=== PATIENT | female | born 1985 | race Caucasian/White ===

== ENCOUNTER 2017-06-23 08:39 | Emergency (ER) | payer OTHER ==
--- NOTE | 2017-06-23 09:35 | RAD REPORT ---
EXAM DESCRIPTION: RAD - Knee Left 3 View - 06/23/2017 9:30 am CLINICAL HISTORY: Pain and swelling. COMPARISON: None. FINDINGS: Mild osteoarthritic changes are present, greatest involving the lateral compartment. A sma ll suprapatellar joint effusion is suspected. No acute fracture or dislocation is seen.
--- NOTE | 2017-06-23 09:41 | EDPHYS ---
Physician Documentation [facility] Name: Alyson Bernardo Age: 31 yrs Sex: Female : 1985 Arrival Date: 06/23/2017 Time: 08:41 Bed 14 Private MD: ED Physician Salinas Linder HPI: 06/23 08:52 This 31 yrs old Female presents to ER via Ambulatory with complaints of Knee snw Pain. 08:52 Onset: The symptoms/episode began/occurred suddenly, 3 day(s) ago, and became snw persistent. The patient has not experienced similar symptoms in the past. The patient has not recently seen a physician. left knee fracture 5 years ago. 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 - Social history:: Smoking status: Patient uses tobacco products, denies chronic smoking, but will smoke occasionally. ROS: 08:51 Constitutional: Negative for fever, chills, and weight loss, Eyes: Negative for injury, snw pain, redness, and discharge, ENT: Negative for injury, pain, and discharge, Neck: Negative for injury, pain, and swelling, Cardiovascular: Negative for chest pain, palpitations, and edema, Respiratory: Negative for shortness of breath, cough, wheezing, and pleuritic chest pain, Abdomen/GI: Negative for abdominal pain, nausea, vomiting, diarrhea, and constipation, Back: Negative for injury and pain, : Negative for injury, bleeding, discharge, and swelling, Skin: Negative for injury, rash, and discoloration, Neuro: Negative for headache, weakness, numbness, tingling, and seizure. 08:51 MS/extremity: Positive for decreased range of motion, swelling, tenderness, of the left knee. Exam: 08:49 Constitutional: This is a well developed, well nourished patient who is awake, alert, snw and in no acute distress. Head/Face: Normocephalic, atraumatic. Eyes: Pupils equal round and reactive to light, extra-ocular motions intact. Lids and lashes normal. Conjunctiva and sclera are non-icteric and not injected. Cornea within normal limits. Periorbital areas with no swelling, redness, or edema. ENT: Nares patent. No nasal discharge, no septal abnormalities noted. Tympanic membranes are normal and external auditory canals are clear. Oropharynx with no redness, swelling, or masses, exudates, or evidence of obstruction, uvula midline. Mucous membranes moist. Neck: Trachea midline, no thyromegaly or masses palpated, and no cervical lymphadenopathy. Supple, full range of motion without nuchal rigidity, or vertebral point tenderness. No Meningismus. Chest/axilla: Normal chest wall appearance and motion. Nontender with no deformity. No lesions are appreciated. Cardiovascular: Regular rate and rhythm with a normal S1 and S2. No gallops, murmurs, or rubs. Normal PMI, no JVD. No pulse deficits. Respiratory: Lungs have equal breath sounds bilaterally, clear to auscultation and percussion. No rales, rhonchi or wheezes noted. No increased work of breathing, no retractions or nasal flaring. Abdomen/GI: Soft, non-tender, with normal bowel sounds. No distension or tympany. No guarding or rebound. No evidence of tenderness throughout. Back: No spinal tenderness. No costovertebral tenderness. Full range of motion. Skin: Warm, dry with normal turgor. Normal color with no rashes, no lesions, and no evidence of cellulitis. Neuro: Awake and alert, GCS 15, oriented to person, place, time, and situation. Cranial nerves II-XII grossly intact. Motor strength 5/5 in all extremities. Sensory grossly intact. Cerebellar exam normal. Normal gait. Psych: Awake, alert, with orientation to person, place and time. Behavior, mood, and affect are within normal limits. 08:49 Musculoskeletal/extremity: Extremities: grossly normal except: noted in the posterior aspect of left knee: swelling, tenderness, ROM: limited active range of motion, Circulation is intact in all extremities. Sensation intact. Vital Signs: 08:47 BP 172 / 85; Pulse 77; Resp 18; Temp 98.2(TE); Pulse Ox 99% on R/A; Weight 145.15 kg lk1 (R); Height 5 ft. 9 in. (175.26 cm) (R); Pain 4/10; 10:24 BP 165 / 78; Pulse 71; Resp 18; Pulse Ox 100% on R/A; aj 08:47 Body Mass Index 47.26 (145.15 kg, 175.26 cm) lk1 MDM: 08:41 Patient medically screened. snw 16:15 Data reviewed: vital signs, nurses notes. Data interpreted: Pulse oximetry: on room air snw is 100 %. Interpretation: normal. Counseling: I had a detailed discussion with the patient and/or guardian regarding: the historical points, exam findings, and any diagnostic results supporting the discharge/admit diagnosis, the presence of at least one elevated blood pressure reading (>120/80) during this emergency department visit, radiology results, the need for outpatient follow up, to return to the emergency department if symptoms worsen or persist or if there are any questions or concerns that arise at home. 06/23 08:47 Order name: Knee Left 3 View XRAY; Complete Time: 09:39 snw Administered Medications: 10:00 Drug: TORadol 60 mg Route: IM; Site: left gluteus; aj 10:27 Follow up: Response: Pain is decreased aj 10:00 Drug: Valium 2 mg Route: PO; aj 10:27 Follow up: Response: Pain is decreased aj Disposition: 06/24 07:48 Co-signature as Attending Physician, Salinas Linder MD Available for consultation at ps1 all times. . Disposition: 06/23/17 09:40 Discharged to Home. Impression: Pain in left knee. - Condition is Stable. - Discharge Instructions: Arthritis, Nonspecific, Knee Bracing, Musculoskeletal Pain, Knee Pain, Cryotherapy, [id number], Heat Therapy. - Prescriptions for Diclofenac Sodium 75 mg Oral Tablet Sustained Release - take 1 tablet by ORAL route 2 times per day; 30 tablet. - Work release form, Medication Reconciliation Form, Thank You Letter, Antibiotic Education, Prescription Opioid Use form. - Follow up: Juice Abrams MD; When: 1 week; Reason: Recheck today's complaints, Continuance of care. Signatures: Dispatcher [employer] Orquidea Barber, RN RN Debora Rubio, BALLAST INSPECTOR-C BALLAST INSPECTOR-Csnw Erica Linton RN RN lk1 Salinas Linder MD MD ps1
--- NOTE | 2017-06-23 09:41 | ER ---
Nurse's Notes [facility] Name: Alyson Bernardo Age: 31 yrs Sex: Female : 1985 Arrival Date: 06/23/2017 Time: 08:41 Bed 14 Private MD: Diagnosis: Pain in left knee Presentation: 06/23 08:45 Presenting complaint: Patient states: "My left knee has been swollen and stiff about 4 lk1 days and it's getting worse.". Transition of care: patient was not received from another setting of care. Onset of symptoms was June 19, 2017. Care prior to arrival: None. 08:45 Method Of Arrival: Ambulatory lk1 08:45 Acuity: BRUNO 4 lk1 Triage Assessment: 08:46 General: Appears in no apparent distress. Behavior is calm, cooperative, appropriate lk1 for age. Pain: Complains of pain in left knee Pain currently is 4 out of 10 on a pain scale. at worst was 10 out of 10 on a pain scale. 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 - Social history:: Smoking status: Patient uses tobacco products, denies chronic smoking, but will smoke occasionally. Screenin:48 Abuse screen: Denies threats or abuse. Denies injuries from another. Nutritional aj screening: No deficits noted. Tuberculosis screening: No symptoms or risk factors identified. Fall Risk None identified. Assessment: 08:47 General: Appears in no apparent distress. comfortable, obese, Behavior is calm, aj cooperative, appropriate for age. Pain: Complains of pain in posterior aspect of left knee and left knee. Neuro: Level of Consciousness is awake, alert, obeys commands, Oriented to person, place, time, situation. Respiratory: Airway is patent Respiratory effort is even, unlabored, Respiratory pattern is regular, symmetrical. Derm: Skin is intact, is healthy with good turgor, Skin is pink, warm \\T\\ dry. normal. Musculoskeletal: Circulation, motion, and sensation intact. Range of motion: intact in all extremities, Reports pain in left knee. 10:24 Reassessment: Patient appears in no apparent distress at this time. No changes from aj previously documented assessment. Patient and/or family updated on plan of care and expected duration. Pain level reassessed. Patient is alert, oriented x 3, equal unlabored respirations, skin warm/dry/pink. Patient states feeling better. Vital Signs: 08:47 BP 172 / 85; Pulse 77; Resp 18; Temp 98.2(TE); Pulse Ox 99% on R/A; Weight 145.15 kg lk1 (R); Height 5 ft. 9 in. (175.26 cm) (R); Pain 4/10; 10:24 BP 165 / 78; Pulse 71; Resp 18; Pulse Ox 100% on R/A; aj 08:47 Body Mass Index 47.26 (145.15 kg, 175.26 cm) lk1 ED Course: 08:41 Patient arrived in ED. as 08:41 Debora Wong FNP-C is PHCP. snw 08:41 Salinas Linder MD is Attending Physician. snw 08:45 Orquidea Ramirez, NINA is Primary Nurse. aj 08:46 Triage completed. lk1 08:47 Arm band placed on right wrist. lk1 08:48 Patient has correct armband on for positive identification. Placed in gown. Call light aj in reach. Adult w/ patient. 09:07 Patient moved to radiology via wheelchair. jr1 09:13 X-ray completed. jr1 09:14 Knee Left 3 View XRAY In Process Unspecified. EDMS 09:40 Juice Abrams MD is Referral Physician. snw 10:24 No provider procedures requiring assistance completed. aj 10:26 Patient did not have IV access during this emergency room visit. aj Administered Medications: 10:00 Drug: TORadol 60 mg Route: IM; Site: left gluteus; aj 10:27 Follow up: Response: Pain is decreased aj 10:00 Drug: Valium 2 mg Route: PO; aj 10:27 Follow up: Response: Pain is decreased aj Outcome: 09:40 Discharge ordered by . snw 10:24 Discharged to home ambulatory. aj 10:24 Condition: good 10:24 Discharge instructions given to patient, Instructed on discharge instructions, follow up and referral plans. medication usage, Demonstrated understanding of instructions, follow-up care, medications, Prescriptions given X 1. 10:26 Patient left the ED. aj Signatures: Dispatcher [employer] Orquidea Barber, RN RN Debora Rubio, PROGRAM MGR-C PROGRAM MGR-Csnw Alyson Najera jr1 Teresa Santiago Leah, RN RN lk1
[2017-06-23] MEDS ORDERED: KETOROLAC 30 MG/ML INJ ONE (09:54)
[2017-06-23] MEDS ORDERED: DIAZEPAM 2 MG TABLET ONE (09:56)
== END 2017-06-23 10:26 | disposition home or self-care (01) ==
LOC: ER 08:39
DX: M25.562 Pain in left knee (principal); I10 Essential (primary) hypertension; Z88.0 Allergy status to penicillin; Z72.0 Tobacco use
CPT/HCPCS: 96372; 99283